=== PATIENT | male | born 1950 | race Caucasian/White ===

== ENCOUNTER → 2023-07-02 07:23 | Outpatient (REF) | payer MEDICARE, SELFPAY | LOC: HWRAD 07:23 | PROVIDERS: ATTENDING PHYSICIAN Internal Medicine Critical Care Medicine; FAMILY PHYSICIAN Internal Medicine | DX: F17.210 Nicotine dependence, cigarettes, uncomplicated (principal) | CPT/HCPCS: 71271 ==

== ENCOUNTER 2023-09-30 10:51 | Emergency (ER) | payer MEDICARE, SELFPAY ==
[2023-09-30 11:01] VITALS: BP 155/90
[2023-09-30 11:19] VITALS: BMI 20.5
[2023-09-30] MEDS: TORADOL 30 MG IM (12:07)
--- NOTE | 2023-09-30 12:22 | ED.GENMED ---
History of Present Illness
General
Chief Complaint: Musculo-Skeletal Complaint
Time Seen by Provider: 09/30/23 11:37
History of Present Illness
History of Present Illness:
73-year-old male presents the emergency department for evaluation of right hip pain has been ongoing for the past several weeks, acutely worsened past 24 hours. He is able to ambulate with moderate pain. Has been taking acetaminophen and ibuprofen
without substantial improvement. Denies any acute falls or traumatic injuries.
Past History
Past History
ED Past Medical History: Other
ED Past Surgical History: None
Social History
Tobacco: Smoker
Alcohol: Occasional
Personal:
Living: with family
Family History
Family History: Negative Diabetes, Hypertension, Early CAD, Asthma or Cancer
Review of Systems
Review of Systems
Allergies reviewed?: Yes
All Other Systems: ROS reviewed and negative except as documented in HPI and ROS
Phy Exam
Physical Exam
Physical Exam:
GEN: Well appearing, NAD, WDWN
HEENT: Oral mucosa moist, no scleral icterus
Cardiac: Regular rate
Lung: No respiratory distress, no tachypnea
MSK: No gross deformity or injuries. Right hip range of motion is normal in all lucas, no pain with passive range of motion. No focal tenderness to the greater trochanter or gluteal region. Straight leg raise test is negative
Skin: Good color, no pallor or jaundice, no rashes
Neuro: AO x3, moves all extremities freely
Psych: Calm, cooperative
Course
Orders/Labs/Results
Orders:
Orders
09/30/23 11:14
Hip, Right 2-3 Views [CR Hip - RT w/wo Pel 2-3 Vw*] Urgent
Comment:
Reason For Exam: right hip pain
Include a pelvis x-ray?: Yes
09/30/23 11:47
Ketorolac [Toradol] 30 mg IM NOW STA
Vital Signs
Initial and Last Documented VS:
Initial Vital Signs
Temp Pulse Resp BP Pulse Ox
98.5 F 75 18 155/90 96
09/30/23 11:01 09/30/23 11:01 09/30/23 11:01 09/30/23 11:01 09/30/23 11:01
Last Documented Vital Signs
Temp Pulse Resp BP Pulse Ox
98.5 F 75 18 155/90 96
09/30/23 11:01 09/30/23 11:01 09/30/23 11:01 09/30/23 11:01 09/30/23 11:01
MDM/Problems Addressed
MDM/Problems Addressed:
X-rays independently interpreted by me are negative for acute osseous abnormality. Given the location of his reported pain I suspect this is hip joint mediated. He has been taking NSAIDs without substantial relief, will trial on a course of
corticosteroids and recommend outpatient orthopedic follow-up
*Critical Care Note
Total Time (30-74mins, 75-104mins- exclusive of procedures): Not Applicable
ED Attending Note
-
Portions of this chart may have been created with voice recognition software.� Occasional wrong word or��sound alike� substitutions may have occurred due to the inherent limitations of voice recognition software.
Discharge Plan
Departure
Patient Disposition: Home (Routine Discharge)
Date of Disposition: 09/30/23
Time of Disposition: 12:23
Patient with high blood pressure during this ER visit?: No
Discharge Problem:
Acute pain of right hip
Instructions: Hip Pain ED
Prescriptions:
New
methylprednisolone [Medrol (Agustin)] 4 mg tablets,dose pack
See Rx Instructions .ROUTE .COMPLEX Qty: 21 0RF
Rx Instructions:
orally per package directions
No Action
amoxicillin-pot clavulanate 875-125 mg tablet
1 tab PO BID Qty: 20 0RF
docusate sodium [Colace] 100 mg capsule
100 mg PO BID Qty: 60 0RF
Referrals:
Jamel Correia MD [Active] -
Chanel Goins MD [Family Provider] -
Activity Restrictions/Additional Instructions:
Do not take the ibuprofen while you are on the steroid medication.
Follow up with Orthopedics
Interventions
Interventions:
*Risk Screen - Suicide Last Done: 09/30/23 11:19
*General Assessment Last Done: 09/30/23 11:20
*Neglect/Abuse Screening Last Done: 09/30/23 11:19
ED- Fall Risk Assessment Last Done: 09/30/23 11:20
*ED COVID-19 Vaccine History Last Done: 09/30/23 11:19
*Nursing Disposition Last Done: 09/30/23 12:30
ED-Musculoskeletal Assessment Last Done: 09/30/23 11:21
Discharge Date and Time
Discharge Date/Time: 09/30/23 12:30
Print Language: LIBYAN
== END 2023-09-30 12:30 | disposition home or self-care (01) ==
LOC: EMR 10:51
PROVIDERS: EMERGENCY PHYSICIAN Emergency Medicine; FAMILY PHYSICIAN Internal Medicine
DX: M25.551 Pain in right hip (principal); F17.200 Nicotine dependence, unspecified, uncomplicated
CPT/HCPCS: 99284; 96372; 73502

== ENCOUNTER → 2024-02-01 15:20 | Outpatient (REF) | payer MEDICARE, SELFPAY | LOC: HWRAD 15:20 | PROVIDERS: ATTENDING PHYSICIAN Internal Medicine Critical Care Medicine; FAMILY PHYSICIAN Internal Medicine | DX: R91.1 Solitary pulmonary nodule (principal); R93.89 Abnormal findings on diagnostic imaging of other specified body structures; J98.8 Other specified respiratory disorders | CPT/HCPCS: 71250 ==

== ENCOUNTER 2024-02-18 06:09 | Day surgery (SDC) | payer MEDICARE, SELFPAY ==
[2024-02-15 08:29] VITALS: BMI 20.6
[2024-02-15 09:13] LABS: INR 0.94; PT 12.9 Sec (11.4-14.6)
[2024-02-15 09:14] LABS: APTT 29.9 Sec (23.4-35.0)
[2024-02-18] VITALS (9 sets, daily range): BP systolic 90–145; BP diastolic 54–81; BMI 20.6; BMI 19.6
== END 2024-02-18 12:31 | disposition home or self-care (01) ==
LOC: SDS 06:09
PROVIDERS: ATTENDING PHYSICIAN Internal Medicine Critical Care Medicine; FAMILY PHYSICIAN Internal Medicine; REFERRING PHYSICIAN Internal Medicine Critical Care Medicine
DX: J98.4 Other disorders of lung (principal); R91.8 Other nonspecific abnormal finding of lung field; J98.11 Atelectasis
CPT/HCPCS: 31629; 31624; 31627; 31654; 88173; 88305; 36415; 71045; 76000; 85610; 85730; 87015; 87070; 87102; 87116; 87205; 88112; 93005; 94640; C1887

== ENCOUNTER → 2024-09-11 12:03 | Outpatient (REF) | payer MEDICARE, SELFPAY | LOC: HWRAD 12:03 | PROVIDERS: ATTENDING PHYSICIAN Surgery; FAMILY PHYSICIAN Internal Medicine; REFERRING PHYSICIAN Internal Medicine Critical Care Medicine | DX: R31.29 Other microscopic hematuria (principal); F17.210 Nicotine dependence, cigarettes, uncomplicated; R91.8 Other nonspecific abnormal finding of lung field; J98.11 Atelectasis | CPT/HCPCS: 71250; 76770 ==